=== PATIENT | male | born 1975 | race Hispanic/Latino ===

== ENCOUNTER 2019-10-24 09:56 | Inpatient (IN) | payer MEDICAID, OTHER, SELFPAY ==
[~2019-10-24] VITALS: Ht 177.8 cm; Wt 119.9 kg
[2019-10-24 10:30] LABS: BASOPHILS % (AUTO) 0.9 % (0.0-5.0); EOSINOPHILS % (AUTO) 0.9 % (0.0-8.0); LYMPHOCYTES % (AUTO) 7.5 % (21.0-51.0); MEAN CORPUSCULAR HEMOGLOBIN 30.7 pg (27.0-33.0); MEAN CORPUSCULAR HGB CONC 33.7 g/dL (32.0-36.0); MEAN CORPUSCULAR VOLUME 91.1 fL (79-99); MONOCYTES % (AUTO) 8.9 % (3.0-13.0); PLATELET COUNT (AUTO) 184 K/uL (130-400); RED BLOOD CELL COUNT(AUTO) 5.05 MIL/uL (4.50-6.20); RED CELL DISTRIBUTION WIDTH 12.5 % (11.0-15.5); WHITE BLOOD COUNT (AUTO) 5.3 K/uL (4.8-10.8)
[2019-10-24] MEDS ORDERED: ALBUTEROL INHALER 90MCG/INH IH ONE (10:31)
[2019-10-24 10:38] LABS: RAPID GROUP A STREP NEGATIVE (NEGATIVE)
[2019-10-24 10:48] LABS: INR 1.02 (0.85-1.15); PARTIAL THROMBOPLASTIN TIME 29.4 SEC (26.3-35.5)
[2019-10-24] MEDS ORDERED: ACETAMINOPHEN 325 MG TAB ONE (10:58)
[2019-10-24 11:03] LABS: ALBUMIN 3.8 g/dL (3.5-5.0); BILIRUBIN,TOTAL 0.8 mg/dL (0.2-1.0); CREATININE 1.1 mg/dL (0.5-1.5); POTASSIUM 3.8 mmol/L (3.5-5.1); TOTAL PROTEIN, SERUM 7.5 g/dL (6.0-8.3)
[2019-10-24 11:04] LABS: APPEARANCE,URINE Cloudy (CLEAR); BILIRUBIN,URINE Negative (NEGATIVE); COLOR,URINE Yellow (YELLOW); GLUCOSE, URINE (UA) Negative (NEGATIVE); KETONES,URINE Negative (NEGATIVE); LEUKOCYTE ESTERASE ,URINE Negative (NEGATIVE); NITRATE,URINE Negative (NEGATIVE); OCCULT BLOOD,URINE Negative (NEGATIVE); PH,URINE 5.5 (5.0-8.0); PROTEIN,URINE Trace mg/dL (NEGATIVE); UROBILINOGEN,URINE 0.2 mg/dL (0.2-1.0)
[2019-10-24 11:09] LABS: FERRITIN 271 ng/mL (30-400)
[2019-10-24 11:32] LABS: BACTERIA,URINE Moderate /HPF (None Seen); RBC,URINE 0-1 /HPF (0-1)
[2019-10-24 11:33] LABS: SQUAMOUS EPITHELIAL CELL,UR 0-2 /HPF (0-2); WBC,URINE 0-1 /HPF (0-1)
[2019-10-24] MEDS ORDERED: CEFTRIAXONE SODIUM 1 GM ONE (12:34)
[2019-10-24] MEDS ORDERED: AZITHROMYCIN 250 MG TABLET PO ONE (12:35)
[2019-10-24] MEDS ORDERED: ONDANSETRON HCL 4 MG/2 ML VIAL IV PRN (13:30)
[2019-10-24] MEDS: METOPROLOL TARTRATE 25 MG TAB PO SCH ×2 (13:30→21:00)
[2019-10-24] MEDS ORDERED: HYDRALAZINE HCL 20 MG/ML VIAL IV PRN (13:30)
[2019-10-24] MEDS ORDERED: ACETAMINOPHEN 325 MG TAB PO PRN (13:30)
[2019-10-24 14:18] LABS: HEMOGLOBIN A1C 7.6 % (4.0-6.0)
[2019-10-24 14:29] LABS: MAGNESIUM 1.8 mg/dL (1.80-2.40); PHOSPHORUS 2.9 mg/dL (2.5-4.9); THYROID STIMULATING HORMONE 1.51 uIU/mL (0.36-3.74)
[2019-10-24 16:00] VITALS: BP 150/91
[2019-10-24] MEDS: ACETAMINOPHEN 325 MG TAB PO PRN (20:10)
[2019-10-24] MEDS: CEFTRIAXONE SODIUM 1 GM IV SCH (20:11)
[2019-10-24 20:12] VITALS: BP 137/85
[2019-10-24] MEDS ORDERED: FUROSEMIDE 10 MG/ML 4ML VIAL IVP SCH (21:00)
[2019-10-24 23:59] VITALS: BP 130/85
[2019-10-25 04:17] VITALS: BP 151/81
[2019-10-25 08:13] VITALS: BP 144/91
[2019-10-25] MEDS ORDERED: ENOXAPARIN SODIUM 40 MG/0.4 ML SYRINGE SQ SCH (09:00)
[2019-10-25] MEDS: CEFTRIAXONE SODIUM 1 GM IV SCH (09:45)
[2019-10-25] MEDS: PANTOPRAZOLE SODIUM 40 MG TABLET.DR PO SCH (09:46)
[2019-10-25] MEDS: METOPROLOL TARTRATE 50 MG TAB PO SCH ×2 (09:46→20:08)
[2019-10-25] MEDS: ACETAMINOPHEN 325 MG TAB PO PRN ×2 (09:46→20:06)
[2019-10-25 11:37] VITALS: BP 158/92
[2019-10-25] MEDS ORDERED: GUAIFENESIN-CODEINE 5 ML SYRUP PO PRN (13:00)
[2019-10-25] MEDS: ENOXAPARIN SODIUM 40 MG/0.4 ML SYRINGE SQ SCH ×2 (14:30→20:07)
--- NOTE | 2019-10-25 15:47 | NUR ---
CM NOTE/IA PATIENT IN RESTRICTED PART OF HOSPITAL, , DWAIN, CALLED. PER , LIVES WITH SPOUSE AND 2 MINOR CHILDREN, IS INDEPENDENT WITH ADLS, NO HH OR PROVIDER, NO DME IN USE, AND FEELS SAFE FOR PATIENT TO RETURN HOME AFTER HOSPITAL DISCHARGE IF STABLE. CM PENDING TO GIVE PATIENT SELF PAY PACKETS AND GOOD RX COUPONS Addendum: 10/27/19 at 1550 by CHRISTOPHER ANDERSON RN CM Amended: Links added.
[2019-10-25 16:20] VITALS: BP 135/80
[2019-10-25] MEDS ORDERED: METFORMIN HCL 500 MG TAB.SR.24H PO SCH (17:00)
[2019-10-25] MEDS: METHYLPREDNISOLONE SOD SUCC 40MG/ML 1ML IVP SCH (20:07)
[2019-10-25] MEDS: METOPROLOL TARTRATE 25 MG TAB PO SCH (20:07)
[2019-10-25 20:16] VITALS: BP 146/100
[2019-10-25 23:59] VITALS: BP 145/86
[2019-10-26 04:00] VITALS: BP 123/75
[2019-10-26 06:20] LABS: BASOPHILS % (AUTO) 0.4 % (0.0-5.0); HEMATOCRIT 47.1 % (42-54); LYMPHOCYTES % (AUTO) 21.3 % (21.0-51.0); MEAN CORPUSCULAR HEMOGLOBIN 30.4 pg (27.0-33.0); MEAN CORPUSCULAR HGB CONC 33.1 g/dL (32.0-36.0); MEAN CORPUSCULAR VOLUME 91.8 fL (79-99); MONOCYTES % (AUTO) 5.3 % (3.0-13.0); NEUTROPHILS % (AUTO) 72.8 % (40.0-77.0); PLATELET COUNT (AUTO) 201 K/uL (130-400); RED BLOOD CELL COUNT(AUTO) 5.13 MIL/uL (4.50-6.20); RED CELL DISTRIBUTION WIDTH 12.4 % (11.0-15.5); WHITE BLOOD COUNT (AUTO) 5.1 K/uL (4.8-10.8)
[2019-10-26 06:34] LABS: CARBON DIOXIDE 27 mmol/L (21-32); CHLORIDE 100 mmol/L (101-111); CREATININE 1.1 mg/dL (0.5-1.5); GLOMERULAR FILTR. RATE CALC 78 mL/min (>60); GLUCOSE,RANDOM 177 mg/dL (70-105); PHOSPHORUS 3.5 mg/dL (2.5-4.9); POTASSIUM 3.9 mmol/L (3.5-5.1); SODIUM SERUM 135 mmol/L (136-145); UREA NITROGEN, BLOOD 13 mg/dL (7-18)
[2019-10-26] MEDS: PANTOPRAZOLE SODIUM 40 MG TABLET.DR PO SCH (08:33)
[2019-10-26] MEDS: METHYLPREDNISOLONE SOD SUCC 40MG/ML 1ML IVP SCH ×2 (08:33→20:40)
[2019-10-26] MEDS: METOPROLOL TARTRATE 50 MG TAB PO SCH ×2 (08:33→20:40)
[2019-10-26] MEDS: ENOXAPARIN SODIUM 40 MG/0.4 ML SYRINGE SQ SCH ×2 (08:34→20:41)
[2019-10-26 10:06] VITALS: BP 135/91
[2019-10-26] MEDS: INSULIN HUMULIN R 100 UNIT/ML 3ML SQ SCH ×3 (11:30→21:00)
[2019-10-26 13:34] VITALS: BP 133/96
[2019-10-26 18:50] VITALS: BP 132/86
[2019-10-26 19:30] VITALS: BP 134/74
--- NOTE | 2019-10-26 19:35 | NUR ---
PATIENT PLASMA CODE [id number]
[2019-10-27 00:19] VITALS: BP 125/82
[2019-10-27 04:00] VITALS: BP 141/89
[2019-10-27 05:12] LABS: CREATININE 0.9 mg/dL (0.5-1.5); CRP QUANTITATIVE 3.4 mg/L (0.00-9.0); MAGNESIUM 2.3 mg/dL (1.80-2.40); PHOSPHORUS 3.6 mg/dL (2.5-4.9); POTASSIUM 3.8 mmol/L (3.5-5.1)
[2019-10-27] MEDS: INSULIN HUMULIN R 100 UNIT/ML 3ML SQ SCH ×4 (06:55→21:46)
[2019-10-27 08:37] VITALS: BP 146/89
[2019-10-27] MEDS: METOPROLOL TARTRATE 50 MG TAB PO SCH ×2 (08:45→20:32)
[2019-10-27] MEDS: PANTOPRAZOLE SODIUM 40 MG TABLET.DR PO SCH (08:45)
[2019-10-27] MEDS: METHYLPREDNISOLONE SOD SUCC 40MG/ML 1ML IVP SCH ×2 (08:45→20:32)
[2019-10-27] MEDS: ENOXAPARIN SODIUM 40 MG/0.4 ML SYRINGE SQ SCH ×2 (08:47→20:33)
[2019-10-27 12:42] VITALS: BP 157/91
[2019-10-27 16:00] VITALS: BP 131/94
[2019-10-27 20:00] VITALS: BP 130/85
[2019-10-27] MEDS ORDERED: INSULIN GLARGINE 100 UNITS/ML 10 ML VIAL SQ SCH (21:00)
[2019-10-28] VITALS: BP 136/82
[2019-10-28 04:00] VITALS: BP 128/78
[2019-10-28] MEDS ORDERED: SODIUM CHLORIDE 0.9% 250 ML IV ONE (05:09)
[2019-10-28 05:35] LABS: LACTATE DEHYDROGENASE 157 U/L (81-234)
[2019-10-28 05:39] LABS: CRP QUANTITATIVE < 2.00 mg/L (0.00-9.0)
[2019-10-28] MEDS: INSULIN HUMULIN R 100 UNIT/ML 3ML SQ SCH ×2 (06:53→12:04)
[2019-10-28 08:00] VITALS: BP 132/91
[2019-10-28] MEDS: METOPROLOL TARTRATE 50 MG TAB PO SCH (08:27)
[2019-10-28] MEDS: METHYLPREDNISOLONE SOD SUCC 40MG/ML 1ML IVP SCH (08:27)
[2019-10-28] MEDS: PANTOPRAZOLE SODIUM 40 MG TABLET.DR PO SCH (08:27)
[2019-10-28] MEDS: ENOXAPARIN SODIUM 40 MG/0.4 ML SYRINGE SQ SCH (08:28)
[2019-10-28] MEDS ORDERED: CEFTRIAXONE SODIUM 1 GM IVP SCH ×2 (10:30→13:00)
[2019-10-28] MEDS ORDERED: AZITHROMYCIN 500MG+NS 250ML 250 ML IV SCH ×2 (10:30→14:00)
[2019-10-28 10:31] LABS: BASOPHILS % (AUTO) 0.4 % (0.0-5.0); EOSINOPHILS % (AUTO) 0.3 % (0.0-8.0); HEMATOCRIT 48.5 % (42-54); LYMPHOCYTES % (AUTO) 29.7 % (21.0-51.0); MEAN CORPUSCULAR HEMOGLOBIN 30.7 pg (27.0-33.0); MEAN CORPUSCULAR HGB CONC 32.6 g/dL (32.0-36.0); MEAN CORPUSCULAR VOLUME 94.2 fL (79-99); MONOCYTES % (AUTO) 5.6 % (3.0-13.0); NEUTROPHILS % (AUTO) 63.6 % (40.0-77.0); PLATELET COUNT (AUTO) 213 K/uL (130-400); RED BLOOD CELL COUNT(AUTO) 5.15 MIL/uL (4.50-6.20); RED CELL DISTRIBUTION WIDTH 12.8 % (11.0-15.5); WHITE BLOOD COUNT (AUTO) 12.6 K/uL (4.8-10.8)
[2019-10-28 10:42] LABS: ALBUMIN 3.4 g/dL (3.5-5.0); BILIRUBIN,TOTAL 0.5 mg/dL (0.2-1.0); POTASSIUM 3.7 mmol/L (3.5-5.1); TOTAL PROTEIN, SERUM 7.4 g/dL (6.0-8.3)
[2019-10-28 12:34] VITALS: BP 146/90
[2019-10-28 18:22] VITALS: BP 142/89
== END 2019-10-28 18:57 | disposition home or self-care (01) | DRG 177 ==
LOC: EDH 09:56 → EDHIP 09:57 → UNDOADMIN 13:20 → EDHIP 13:20 → 2DH 15:04
PROVIDERS: ADMIT Internal Medicine; ATTEND Internal Medicine
PROC: 30233K1 Transfusion of Nonautologous Frozen Plasma into Peripheral Vein, Percutaneous Approach (ICD-10-PCS; principal; 2019-10-24)
DX: U07.1 COVID-19 (principal); J96.01 Acute respiratory failure with hypoxia; J12.89 Other viral pneumonia; Z68.41 Body mass index [BMI] 40.0-44.9, adult; E87.1 Hypo-osmolality and hyponatremia; J98.11 Atelectasis; E66.01 Morbid (severe) obesity due to excess calories; E11.9 Type 2 diabetes mellitus without complications; F17.210 Nicotine dependence, cigarettes, uncomplicated; I10 Essential (primary) hypertension; D70.8 Other neutropenia; T38.0X5A Adverse effect of glucocorticoids and synthetic analogues, initial encounter; Y92.89 Other specified places as the place of occurrence of the external cause; Z83.3 Family history of diabetes mellitus
CPT/HCPCS: 36415; 71045; 80048; 80053; 81001; 82550; 82728; 82948; 83036; 83615; 83735; 83880; 84100; 84145; 84443; 84484; 85025; 85378; 85610; 85730; 86140; 86850; 86900; 86901; 86927; 87040; 87088; 87633; 87635; 87804; 87880; 93005; 94760; G0378; J0696; J1650; J1815; J1940; J2405; J2920; J7050; P9017; U0003

== ENCOUNTER 2019-10-29 22:51 | Inpatient (IN) | payer OTHER, SELFPAY ==
[~2019-10-29] VITALS: Ht 172.7 cm; Wt 118.0 kg
[2019-10-30 00:33] LABS: ABG BASE EXCESS 0.2 mmol/L (-2.0-3.0); ABG HCO3 21.6 mmol/L (21.0-28.0); ABG OXYGEN SATURATION 95.8 % (95.0-99.0); ABG PCO2 27 mmHg (35-48)
[2019-10-30] MEDS ORDERED: KETOROLAC TROMETHAMINE 30MG/ML ONE (00:49)
[2019-10-30] MEDS ORDERED: METOCLOPRAMIDE 10 MG/2 ML VIAL ONE (00:49)
[2019-10-30] MEDS ORDERED: ONDANSETRON HCL 4 MG/2 ML VIAL ONE (00:49)
[2019-10-30] MEDS ORDERED: IBUPROFEN 600 MG TABLET ONE (01:14)
[2019-10-30] MEDS ORDERED: ACETAMINOPHEN EXTRA STRENGTH 500 MG TABLET ONE (01:14)
[2019-10-30 01:24] LABS: BASOPHILS % (AUTO) 0.3 % (0.0-5.0); EOSINOPHILS % (AUTO) 0.2 % (0.0-8.0); HEMATOCRIT 47.7 % (42-54); LYMPHOCYTES % (AUTO) 13.6 % (21.0-51.0); MEAN CORPUSCULAR HEMOGLOBIN 30.7 pg (27.0-33.0); MEAN CORPUSCULAR HGB CONC 34.4 g/dL (32.0-36.0); MEAN CORPUSCULAR VOLUME 89.3 fL (79-99); MONOCYTES % (AUTO) 6.7 % (3.0-13.0); NEUTROPHILS % (AUTO) 78.7 % (40.0-77.0); PLATELET COUNT (AUTO) 142 K/uL (130-400); RED BLOOD CELL COUNT(AUTO) 5.34 MIL/uL (4.50-6.20); RED CELL DISTRIBUTION WIDTH 12.4 % (11.0-15.5); WHITE BLOOD COUNT (AUTO) 5.8 K/uL (4.8-10.8)
[2019-10-30 01:35] LABS: POTASSIUM 3.2 mmol/L (3.5-5.1)
[2019-10-30 01:41] LABS: APPEARANCE,URINE Clear (CLEAR); BILIRUBIN,URINE Negative (NEGATIVE); COLOR,URINE Yellow (YELLOW); GLUCOSE, URINE (UA) Negative (NEGATIVE); KETONES,URINE >=160 mg/dL (NEGATIVE); LEUKOCYTE ESTERASE ,URINE Negative (NEGATIVE); NITRATE,URINE Negative (NEGATIVE); OCCULT BLOOD,URINE Negative (NEGATIVE); PROTEIN,URINE Trace mg/dL (NEGATIVE)
[2019-10-30 01:43] LABS: INR 1.03 (0.85-1.15); PARTIAL THROMBOPLASTIN TIME 27.8 SEC (26.3-35.5); PROTHROMBIN TIME 11.1 SEC (9.6-11.6)
[2019-10-30 01:48] LABS: ALBUMIN 3.6 g/dL (3.5-5.0); BILIRUBIN,TOTAL 1.1 mg/dL (0.2-1.0); TOTAL PROTEIN, SERUM 7.7 g/dL (6.0-8.3)
[2019-10-30 01:54] LABS: BACTERIA,URINE Rare /HPF (None Seen); MUCUS,URINE Few LPF (None Seen); RBC,URINE 0-1 /HPF (0-1); WBC,URINE 0-1 /HPF (0-1)
[2019-10-30] MEDS ORDERED: POTASSIUM BICARB/CIT AC 25 MEQ TABLET.EFF ONE (02:19)
[2019-10-30 02:21] LABS: B-TYPE NATRIURETIC PEPTIDE < 5 pg/mL (0-100)
[2019-10-30 02:36] LABS: AMPHET/METH SCREEN,URINE NEGATIVE (NEGATIVE); BARBITURATE SCREEN, URINE NEGATIVE (NEGATIVE); BENZODIAZEPINES SCREEN,URINE NEGATIVE (NEGATIVE); CANNABINOID SCREEN,URINE NEGATIVE (NEGATIVE); COCAINE SCREEN,URINE NEGATIVE (NEGATIVE); OPIATE SCREEN,URINE NEGATIVE (NEGATIVE); PHENCYCLIDINE SCREEN,URINE NEGATIVE (NEGATIVE)
[2019-10-30] MEDS ORDERED: IOHEXOL-350 75 ML VIAL IV ONE (03:36)
[2019-10-30] MEDS ORDERED: CEFTRIAXONE SODIUM 1 GM ONE (08:05)
[2019-10-30] MEDS ORDERED: AZITHROMYCIN 500MG+NS 250ML 250 ML IV ONE (08:05)
[2019-10-30] MEDS ORDERED: SODIUM CHLORIDE 0.9% 1000ML 1,000 ML IV SCH (11:13)
[2019-10-30] MEDS: METOPROLOL TARTRATE 25 MG TAB PO SCH ×2 (11:15→21:00)
[2019-10-30] MEDS ORDERED: LACTULOSE 20 GM/30 ML UDCUP PO PRN (11:15)
[2019-10-30] MEDS ORDERED: POTASSIUM CHLORIDE 10MEQ/100ML 100 ML IV PRN (11:15)
[2019-10-30] MEDS ORDERED: ACETAMINOPHEN 325 MG TAB PO PRN (11:15)
[2019-10-30] MEDS ORDERED: NITROGLYCERIN 0.4 MG SL TAB SL PRN (11:15)
[2019-10-30] MEDS: CEFEPIME HCL 2 GM VIAL IVP SCH ×2 (11:15→19:15)
[2019-10-30] MEDS ORDERED: ONDANSETRON HCL 4 MG/2 ML VIAL IV PRN (11:15)
[2019-10-30] MEDS ORDERED: LIDOCAINE HCL-MPF 1% 2ML VIAL IV PRN (11:15)
[2019-10-30] MEDS ORDERED: HYDRALAZINE HCL 20 MG/ML VIAL IV PRN (11:15)
[2019-10-30] MEDS: METHYLPREDNISOLONE SOD SUCC 40MG/ML 1ML IVP SCH ×2 (11:15→19:15)
[2019-10-30] MEDS ORDERED: VANCOMYCIN PROTOCOL PER PHARMACY IV SCH (11:15)
[2019-10-30] MEDS: INSULIN HUMULIN R 100 UNIT/ML 3ML SQ SCH ×3 (11:30→21:00)
[2019-10-30] MEDS ORDERED: VANCOMYCIN 2.5 GM in SODIUM CHLORIDE 0.9% 500ML 500 ML IV ONE (13:15)
[2019-10-30] MEDS ORDERED: COMPOUND IV REFRIGERATED 1 EACH IVSOLN MISC PRN (13:15)
[2019-10-30] MEDS ORDERED: METHYLPREDNISOLONE SOD SUCC 40MG/ML 1ML ONE ×2 (14:51→23:48)
[2019-10-30] MEDS ORDERED: CEFEPIME HCL 1 GM VIAL ONE ×2 (14:51→23:20)
[2019-10-30] MEDS ORDERED: METOPROLOL TARTRATE 25 MG TAB ONE ×2 (14:52→23:20)
[2019-10-30] MEDS ORDERED: FAMOTIDINE 20MG TAB 20 MG TAB ONE (20:52)
[2019-10-30] MEDS ORDERED: SODIUM CHLORIDE 0.9% 1000ML 1,000 ML IV ONE (20:53)
[2019-10-30] MEDS: FAMOTIDINE 20MG TAB 20 MG TAB PO SCH (21:00)
[2019-10-30] MEDS ORDERED: INSULIN HUMULIN R 100 UNIT/ML 3ML ONE (23:21)
[2019-10-30] MEDS ORDERED: SODIUM CHLORIDE 0.9% 100 ML IV ONE (23:21)
[2019-10-31] MEDS: CEFEPIME HCL 2 GM VIAL IVP SCH ×3 (03:15→19:15)
[2019-10-31] MEDS: METHYLPREDNISOLONE SOD SUCC 40MG/ML 1ML IVP SCH ×3 (03:15→19:15)
[2019-10-31 05:30] LABS: BASOPHILS % (AUTO) 0.3 % (0.0-5.0); EOSINOPHILS % (AUTO) 0.5 % (0.0-8.0); HEMATOCRIT 44.9 % (42-54); LYMPHOCYTES % (AUTO) 29.7 % (21.0-51.0); MEAN CORPUSCULAR HEMOGLOBIN 30.8 pg (27.0-33.0); MEAN CORPUSCULAR HGB CONC 33.9 g/dL (32.0-36.0); MEAN CORPUSCULAR VOLUME 90.9 fL (79-99); MONOCYTES % (AUTO) 6.2 % (3.0-13.0); NEUTROPHILS % (AUTO) 62.8 % (40.0-77.0); PLATELET COUNT (AUTO) 146 K/uL (130-400); RED BLOOD CELL COUNT(AUTO) 4.94 MIL/uL (4.50-6.20); RED CELL DISTRIBUTION WIDTH 12.3 % (11.0-15.5); WHITE BLOOD COUNT (AUTO) 5.8 K/uL (4.8-10.8)
[2019-10-31 05:52] LABS: ALBUMIN 3.3 g/dL (3.5-5.0); BILIRUBIN,TOTAL 0.6 mg/dL (0.2-1.0); CREATININE 0.9 mg/dL (0.5-1.5); CRP QUANTITATIVE 41.4 mg/L (0.00-9.0); POTASSIUM 4.1 mmol/L (3.5-5.1)
[2019-10-31] MEDS: VANCOMYCIN 1.5 GM in SODIUM CHLORIDE 0.9% 250 ML IV SCH ×2 (06:00→18:00)
[2019-10-31] MEDS ORDERED: CEFEPIME HCL 1 GM VIAL ONE ×3 (06:45→23:27)
[2019-10-31] MEDS ORDERED: METHYLPREDNISOLONE SOD SUCC 40MG/ML 1ML ONE ×3 (06:45→23:46)
[2019-10-31] MEDS ORDERED: SODIUM CHLORIDE 0.9% 100 ML IV ONE (06:46)
[2019-10-31] MEDS: INSULIN HUMULIN R 100 UNIT/ML 3ML SQ SCH ×4 (07:30→21:00)
[2019-10-31] MEDS ORDERED: ENOXAPARIN SODIUM 30 MG/0.3 ML SQ ONE (07:50)
[2019-10-31] MEDS ORDERED: FAMOTIDINE 20MG TAB 20 MG TAB ONE (07:50)
[2019-10-31] MEDS: ENOXAPARIN SODIUM 30 MG/0.3 ML SQ SCH (09:00)
[2019-10-31] MEDS: FAMOTIDINE 20MG TAB 20 MG TAB PO SCH ×2 (09:00→21:00)
[2019-10-31] MEDS: METOPROLOL TARTRATE 25 MG TAB PO SCH ×3 (09:00→21:00)
--- NOTE | 2019-10-31 11:18 | NUR ---
DCP: HOME WITH FAMILY Sw unable to speak to pt who is ER covid unit. Per Michelle Rodríguez [phone], pt was discharged home from [facility] Thursday and reports that pt began feeling really bad again that night with fever. Pt returned to ER Sat when he felt worse and told he needed to come back. states she and children have also been tested and pending results, but everyone in home has had symptoms of covid, for the past week. Prior to admissions, pt was independent, working at [email or web address], no DME or in home care services. PCP is Dr Duggan, uses [facility] for rx. Plan is home at [place]. Addendum: 10/31/19 at 1127 by YULIYA KINGSLEY Amended: Links added.
[2019-10-31] MEDS ORDERED: METOPROLOL TARTRATE 25 MG TAB ONE ×2 (12:04→23:46)
[2019-10-31] MEDS ORDERED: INSULIN HUMULIN R 100 UNIT/ML 3ML ONE (13:04)
[2019-10-31] MEDS ORDERED: SODIUM CHLORIDE 0.9% 1000ML 1,000 ML IV ONE (19:59)
[2019-10-31 23:27] LABS: HEMATOCRIT 46.6 % (42-54); LYMPHOCYTES % (AUTO) 17.3 % (21.0-51.0); MEAN CORPUSCULAR HEMOGLOBIN 30.7 pg (27.0-33.0); MEAN CORPUSCULAR HGB CONC 34.3 g/dL (32.0-36.0); MEAN CORPUSCULAR VOLUME 89.3 fL (79-99); MONOCYTES % (AUTO) 3.8 % (3.0-13.0); NEUTROPHILS % (AUTO) 76.4 % (40.0-77.0); PLATELET COUNT (AUTO) 159 K/uL (130-400); RED BLOOD CELL COUNT(AUTO) 5.22 MIL/uL (4.50-6.20); RED CELL DISTRIBUTION WIDTH 12.2 % (11.0-15.5); WHITE BLOOD COUNT (AUTO) 6.4 K/uL (4.8-10.8)
[2019-10-31] MEDS ORDERED: FAMOTIDINE/PF 20 MG/2 ML VIAL IV ONE (23:46)
[2019-10-31 23:51] LABS: ALBUMIN 3.5 g/dL (3.5-5.0); BILIRUBIN,TOTAL 0.5 mg/dL (0.2-1.0); CREATININE 0.9 mg/dL (0.5-1.5); POTASSIUM 3.9 mmol/L (3.5-5.1); TOTAL PROTEIN, SERUM 7.6 g/dL (6.0-8.3)
[2019-11-01] MEDS: METHYLPREDNISOLONE SOD SUCC 40MG/ML 1ML IVP SCH (02:54)
[2019-11-01] MEDS: CEFEPIME HCL 2 GM VIAL IVP SCH ×2 (02:54→13:17)
--- NOTE | 2019-11-01 02:55 | NUR ---
got report from mahamed from er as per report patient did not received schedule vacomycin 1.5 mg q12 will adress it with pharmacy
[2019-11-01 04:45] VITALS: BP 146/73
[2019-11-01 06:02] LABS: BASOPHILS % (AUTO) 0.1 % (0.0-5.0); HEMATOCRIT 45.8 % (42-54); LYMPHOCYTES % (AUTO) 11.5 % (21.0-51.0); MEAN CORPUSCULAR HEMOGLOBIN 30.6 pg (27.0-33.0); MEAN CORPUSCULAR HGB CONC 34.1 g/dL (32.0-36.0); MEAN CORPUSCULAR VOLUME 89.8 fL (79-99); NEUTROPHILS % (AUTO) 84.8 % (40.0-77.0); PLATELET COUNT (AUTO) 169 K/uL (130-400); RED CELL DISTRIBUTION WIDTH 12.2 % (11.0-15.5); WHITE BLOOD COUNT (AUTO) 9.6 K/uL (4.8-10.8)
--- NOTE | 2019-11-01 06:16 | NUR ---
called pharmacy but pharmacist is running late, i wated to make him aware that this patient missed a whole day of vancomycin, and need to know if as per pharmacist dosage might have to get adjusted pending response from pharmacist
[2019-11-01 06:26] LABS: ALBUMIN 3.4 g/dL (3.5-5.0); BILIRUBIN,TOTAL 0.7 mg/dL (0.2-1.0); CREATININE 0.8 mg/dL (0.5-1.5); POTASSIUM 3.9 mmol/L (3.5-5.1); TOTAL PROTEIN, SERUM 7.2 g/dL (6.0-8.3)
[2019-11-01 07:30] VITALS: BP 140/83
[2019-11-01] MEDS: INSULIN HUMULIN R 100 UNIT/ML 3ML SQ SCH ×2 (07:30→13:19)
[2019-11-01] MEDS ORDERED: VANCOMYCIN 1.5 GM in SODIUM CHLORIDE 0.9% 250 ML IV SCH (09:25)
[2019-11-01 09:36] LABS: CRP QUANTITATIVE 22.8 mg/L (0.00-9.0)
[2019-11-01] MEDS: METOPROLOL TARTRATE 25 MG TAB PO SCH ×2 (10:00→11:15)
[2019-11-01] MEDS: FAMOTIDINE 20MG TAB 20 MG TAB PO SCH (10:00)
[2019-11-01] MEDS: ENOXAPARIN SODIUM 30 MG/0.3 ML SQ SCH (10:00)
--- NOTE | 2019-11-01 10:57 | NUR ---
DR. FLORES MADE AWARE PATIENT RECEIVED PLASMA LAST THURSDAY, AND HAS PENDING ORDER TO TRANSFUSE 2 UNITS OF CONVALESCENT PLASMA. PER DR. FLORES D/C PLASMA ORDER
[2019-11-01] MEDS ORDERED: METO25 PO (11:30)
[2019-11-01] MEDS ORDERED: METH2TAB PO (11:40)
[2019-11-01 12:00] VITALS: BP 123/78
--- NOTE | 2019-11-01 14:25 | NUR ---
DISCHARGE INSTRUCTIONS GIVEN TO PATIENT, MADE AWARE OF NEW RX FOR MEDROL, AND METOPROLOL. MADE AWARE OF NEED TO FOLLOW UP WITH PCP DR. FLOYD IN [place] IN 2-3 DAYS. PATIENT AT THIS TIME IS AMBULATING IN ROOM, DENIES ANY SHORTNESS OF BREATH OR CHEST PAIN, PATIENT HAS BEEN AFEBRILE. IV AND TELE REMOVED. PATIENT WILL BE TAKEN HOME BY HIS
[2019-11-01] MEDS ORDERED: VANCOMYCIN 1.25 GM in SODIUM CHLORIDE 0.9% 250 ML IV SCH (22:00)
[2019-11-02] MEDS ORDERED: DEXAMETHASONE 4 MG TAB PO SCH (09:00)
== END 2019-11-01 14:35 | disposition home or self-care (01) | DRG 177 ==
LOC: EDH 22:51 → EDHIP 22:52 → 2DH 11-01 04:37
PROVIDERS: ADMIT Hospitalist; ATTEND Hospitalist
DX: U07.1 COVID-19 (principal); J12.89 Other viral pneumonia; J96.90 Respiratory failure, unspecified, unspecified whether with hypoxia or hypercapnia; I11.9 Hypertensive heart disease without heart failure; F17.210 Nicotine dependence, cigarettes, uncomplicated; E11.9 Type 2 diabetes mellitus without complications; E66.9 Obesity, unspecified; M47.815 Spondylosis without myelopathy or radiculopathy, thoracolumbar region; Z68.39 Body mass index [BMI] 39.0-39.9, adult; Z83.3 Family history of diabetes mellitus; Z82.49 Family history of ischemic heart disease and other diseases of the circulatory system
CPT/HCPCS: 36415; 71045; 71275; 80053; 80202; 80305; 81001; 82550; 82728; 82803; 82948; 83605; 83615; 83880; 84145; 84484; 85025; 85378; 85610; 85730; 86140; 86850; 86900; 86901; 87040; 93005; G0378; J0456; J0692; J0696; J1650; J1815; J1885; J2405; J2765; J2920; J3370; J3490; J7030; J7040; J7050; Q9967

== ENCOUNTER 2024-10-11 17:29 | Emergency (ER) | payer OTHER ==
[~2024-10-11] VITALS: Ht 172.7 cm; Wt 119.3 kg
[~2024-10-11 17:29] MED LIST: METH2TAB PO; METO25 PO
[2024-10-11 18:04] LABS: BASOPHILS # (AUTO) 0.09 K/uL (0.00-0.20); BASOPHILS % (AUTO) 1.2 % (0.0-5.0); EOSINOPHILS # (AUTO) 0.19 K/uL (0.00-0.70); EOSINOPHILS % (AUTO) 2.4 % (0.0-8.0); HEMATOCRIT 46.9 % (42-54); IMMATURE GRANULOCYTE ABSOLUTE 0.04 K/uL (0-1); LYMPHOCYTES # (AUTO) 2.4 K/uL (1.0-4.8); LYMPHOCYTES % (AUTO) 30.9 % (21.0-51.0); MEAN CORPUSCULAR HEMOGLOBIN 31.3 pg (27.0-33.0); MEAN CORPUSCULAR HGB CONC 34.1 g/dL (32.0-36.0); MEAN CORPUSCULAR VOLUME 91.6 fL (79-99); MONOCYTES # (AUTO) 0.5 K/uL (0.1-1.0); MONOCYTES % (AUTO) 6.4 % (3.0-13.0); NEUTROPHILS # (AUTO) 4.6 K/uL (1.8-7.7); NEUTROPHILS % (AUTO) 58.6 % (40.0-77.0); PLATELET COUNT (AUTO) 235 K/uL (130-400); RED BLOOD CELL COUNT(AUTO) 5.12 MIL/uL (4.50-6.20); RED CELL DISTRIBUTION WIDTH 11.9 % (11.0-15.5); WHITE BLOOD COUNT (AUTO) 7.8 K/uL (4.8-10.8)
[2024-10-11 18:05] VITALS: BP 142/92; PULSE 80; RESP 18; TEMP 98.7; O2SAT 96
[2024-10-11 18:14] LABS: APPEARANCE,URINE CLEAR (CLEAR); BILIRUBIN,URINE NEGATIVE (NEGATIVE); COLOR,URINE YELLOW (YELLOW); GLUCOSE, URINE (UA) NEGATIVE (NEGATIVE); KETONES,URINE NEGATIVE (NEGATIVE); LEUKOCYTE ESTERASE ,URINE NEGATIVE Leu/uL (NEGATIVE); NITRATE,URINE NEGATIVE (NEGATIVE); OCCULT BLOOD,URINE NEGATIVE (NEGATIVE); PH,URINE 5.5 (5.0-8.0); PROTEIN,URINE NEGATIVE (NEGATIVE); UROBILINOGEN,URINE 0.2 mg/dL (0.2-1.0)
[2024-10-11] MEDS: LACTATED RINGERS 1000ML 1,000 ML IV ONE (18:14)
[2024-10-11 18:15] LABS: POTASSIUM 4.1 mmol/L (3.5-5.1)
[2024-10-11 18:17] LABS: BACTERIA,URINE RARE /HPF (None Seen); MUCUS,URINE RARE LPF (None Seen); RBC,URINE 0-1 /HPF (0-1); SQUAMOUS EPITHELIAL CELL,UR RARE /HPF (0-2)
--- NOTE | 2024-10-11 18:19 | HMCIMG ---
CHEST 1VW REASON: weakness COMPARISON: None. FINDINGS: Single view of the chest was obtained. Lungs are clear. Heart size is normal. There is no pulmonary vascular congestion. Mediastinum and bony thorax appear unremarkable. IMPRESSION: 1. Normal single view chest x-ray.
[2024-10-11 18:24] LABS: ALBUMIN 3.9 g/dL (3.5-5.0); BILIRUBIN,TOTAL 1.1 mg/dL (0.2-1.0); TOTAL PROTEIN, SERUM 7.9 g/dL (6.0-8.3)
[2024-10-11] MEDS ORDERED: METF-1151 PO (18:43)
[2024-10-11] MEDS ORDERED: LOSA50TA64 PO (18:43)
--- NOTE | 2024-10-11 18:43 | ERN ---
General Chief Complaint: Dizzy/Light Headed Stated Complaint: DIZZINESS, FEVER, WEAKNESS Time Seen by MD: 17:34 Source: patient History of Present Illness Initial Comments 48-year-old male coming in with multiple complaints. Patient states that he has not taken his blood pressure medication or his antidiabetic medication for a year. He states that he has not followed up with his PCP is told before. He has been feeling weakness and he believes his blood pressure has been really elevated. Checked his blood pressure at the local grocery store and states that it was in the 160s. Allergies: Coded Allergies: No Known Allergies (Verified Allergy, Unknown, 10/30/19) Home Meds Active Scripts Methylprednisolone (Medrol) 2 Mg Tablet, 2 MG PO DAILY for 7 Days, #21 TAB Prov:[facility] GOSS [facility] 11/01/19 Metoprolol Tartrate (Lopressor) 25 Mg Tab, 25 MG PO BID for 10 Days, #20 TAB Prov:[facility]OO GOSS I [facility] 11/01/19 Past Medical History Past Medical History: Diabetes-Type II, Hypertension Past Surgical History: Unknown ROS Dictation CONSTITUTIONAL: No chills, no fever, weakness, no diaphoresis, no malaise. HEAD/FACE: No signs of trauma. EENT: No eye pain, no blurred vision, no tearing, no double vision, no ear pain, no ear discharge, no nose pain, no nasal congestion, no throat pain, no throat swelling, no mouth pain. RESPIRATORY: No cough, no orthopnea, no SOB, no stridor, no wheezing. CARDIOVASCULAR: No chest pain, no edema, no palpitations, no syncope. GASTROINTESTINAL/ABDOMINAL: No abdominal pain, no constipation, no diarrhea, no nausea, no vomiting. GENITOURINARY: No abnormal discharge, no dysuria, no frequent urination, no hematuria. No complaints of pain in the genitals. MUSCULOSKELETAL: No back pain, no gout, no joint pain, no joint swelling, no muscle pain, no muscle stiffness, no neck pain. INTEGUMENTARY: No change in color, no change in hair/nails, no dryness, no lesion, no lumps, no rash. NEUROLOGICAL/PSYCH: No anxiety, not depressed, no emotional problem, no headache, no numbness, no pre-existing deficit, no history of seizures, no tremors, no weakness. HEMATOLOGIC/LYMPHATIC: Not anemic, no history of blood clots, no apparent bleeding, no bruising, glands not swollen. All Systems Negative, Except as Noted. Physical Exam Physical Exam Dictation VITAL SIGNS: Reviewed. GENERAL APPEARANCE: Alert, oriented x3, no acute distress, obese. HEAD AND FACE: Non-traumatic. EYES: PERRL, pink conjunctivas, eyelid no trauma, anterior chamber clear. EARS: Pinnas intact and no signs of trauma or erythema. Ear canals clear and no discharge. TMs no erythema. NOSE: No discharge, no bleeding. OROPHARYNX: Mouth normal, teeth no caries, tongue pink. Pharynx clear, no erythema. Tonsils no exudates, no abscesses noted. Mucous membrane moist. NECK: Supple, non-tender, no thyromegaly, no masses, no JVD, no bruits. BREAST: Deferred. CHEST: No tenderness, no crepitus, no paradoxical movement, no retractions. LUNGS: Clear, well-ventilated, symmetric, no rales, no wheezing, no rhonchi, no stridor, good breath sounds bilaterally. HEART: Regular rate, regular rhythm, no murmur, no gallops. VASCULAR: No peripheral edema. ABDOMEN: Soft, positive bowel sounds, nondistended, no guarding, nontender, no rebound, no masses no hepatomegaly, no splenomegaly, no García's sign, no hernias. RECTAL: Deferred. GENITAL: Deferred. NEUROLOGICAL: Normal speech, gross motor function intact, gross sensory function intact. MUSCULOSKELETAL: Neck nontender, full range of motion, back nontender, full range of motion. EXTREMITIES: Nontender, full range of motion. SKIN: Color pink, dry, no turgor, no rash, no lacerations, no abrasions, no contusions. LYMPHATICS: Deferred. Results Laboratory and Microbiology Lab and Micro Result Laboratory Tests Test 10/11/24 17:58 10/11/24 18:00 White Blood Count 7.8 K/uL (4.8-10.8) Red Blood Count 5.12 MIL/uL (4.50-6.20) Hemoglobin 16.0 g/dL (14.0-18.0) Hematocrit 46.9 % (42-54) Mean Corpuscular Volume 91.6 fL (79-99) Mean Corpuscular Hemoglobin 31.3 pg (27.0-33.0) Mean Corpuscular Hemoglobin Concent 34.1 g/dL (32.0-36.0) Red Cell Distribution Width 11.9 % (11.0-15.5) Platelet Count 235 K/uL (130-400) Mean Platelet Volume 9.9 fL (7.5-10.5) Immature Granulocyte % (Auto) 0.5 % (0-1) Neutrophils (%) (Auto) 58.6 % (40.0-77.0) Lymphocytes (%) (Auto) 30.9 % (21.0-51.0) Monocytes (%) (Auto) 6.4 % (3.0-13.0) Eosinophils (%) (Auto) 2.4 % (0.0-8.0) Basophils (%) (Auto) 1.2 % (0.0-5.0) Neutrophils # (Auto) 4.6 K/uL (1.8-7.7) Lymphocytes # (Auto) 2.4 K/uL (1.0-4.8) Monocytes # (Auto) 0.5 K/uL (0.1-1.0) Eosinophils # (Auto) 0.19 K/uL (0.00-0.70) Basophils # (Auto) 0.09 K/uL (0.00-0.20) Absolute Immature Granulocyte (auto 0.04 K/uL (0-1) Nucleated Red Blood Cells 0.0 % (0.0-0.19) Sodium Level 137 mmol/L (136-145) Potassium Level 4.1 mmol/L (3.5-5.1) Chloride Level 102 mmol/L (101-111) Carbon Dioxide Level 30 mmol/L (21-32) Blood Urea Nitrogen 15 mg/dL (7-18) Creatinine 1.0 mg/dL (0.5-1.3) Glomerular Filtration Rate Calc 93 mL/min (>90) Random Glucose 212 mg/dL (70-105) H Total Calcium 8.8 mg/dL (8.5-10.1) Total Bilirubin 1.1 mg/dL (0.2-1.0) H Aspartate Amino Transf (AST/SGOT) 39 U/L (10-37) H Alanine Aminotransferase (ALT/SGPT) 72 U/L (12-78) Alkaline Phosphatase 102 U/L (50-136) Total Creatine Kinase 221 U/L (21-232) # Troponin I High Sensitivity 5 ng/L (4-75) Total Protein 7.9 g/dL (6.0-8.3) Albumin 3.9 g/dL (3.5-5.0) Urine Color YELLOW (YELLOW) Urine Appearance CLEAR (CLEAR) Urine pH 5.5 (5.0-8.0) Urine Specific [place] 1.028 (1.001-1.031) Urine Protein NEGATIVE mg/dL (NEGATIVE) Urine Glucose (UA) NEGATIVE mg/dL (NEGATIVE) Urine Ketones NEGATIVE mg/dL (NEGATIVE) Urine Occult Blood NEGATIVE (NEGATIVE) Urine Nitrate NEGATIVE (NEGATIVE) Urine Bilirubin NEGATIVE mg/dL (NEGATIVE) Urine Urobilinogen 0.2 mg/dL (0.2-1.0) Urine Leukocyte Esterase NEGATIVE Major/uL Urine RBC 0-1 /HPF (0-1) Urine WBC 2-5 /HPF (0-1) H Urine Squamous Epithelial Cells RARE /HPF (0-2) Urine Bacteria RARE /HPF (None Seen) Labs Reviewed?: Yes MDM MDM: Differential diagnosis: Hypertension, diabetes mellitus, noncompliance, Rationale: Tests considered and ordered secondary to shared decision making include: Previous outside records reviewed: Old ER visits. Risk of complication and/or morbidity or mortality of patient management: None Patient is a 48-year-old male coming in complaining of generalized body weakness. Patient states that he has not taken his medications prescribed by his PCP. He has been noncompliant for about a year. He was diagnosed with hypertension and diabetes. He has not refilled his scripts I did advise him that we will be refilling his scripts and I also advised him appropriate follow up with his primary care physician. After hydration with IV fluids patient states he feels better and will be discharged in stable condition she was educated on the appropriate follow up and we will be doing so accordingly. ED Course Orders Procedure Category Date Status Time Cbc With Differential LAB 10/11/24 Complete 17:42 Chest 1vw RAD 10/11/24 Resulted 17:42 12 Lead Ekg Tracing- EKG 10/11/24 Logged Technical 17:42 Lactated Ringers PHA 10/11/24 Complete 1000ml (Lactated 18:00 Creatine Kinase, Total LAB 10/11/24 Complete 17:42 Troponin I High LAB 10/11/24 Complete Sensitivity 17:42 Comprehensive LAB 10/11/24 Complete Metabolic Panel 17:42 Urinalysis LAB 10/11/24 Complete W/Microscopic 17:42 Current Medications Medications (Trade) Dose Ordered Sig/Juaquin Route PRN Reason Start Time Stop Time Status Last Admin Dose Admin Lactated Ringer's 1,000 ml @ 0 mls/hr ONCE ONCE IV 10/11/24 18:00 10/11/24 18:01 DC 10/11/24 18:14 Vital Signs Date Time Temp Pulse Resp B/P (MAP) Pulse Ox O2 Delivery O2 Flow Rate FiO2 10/11/24 18:05 98.8 80 18 142/92 96 Room Air* 0 21 10/11/24 17:32 97.5 89 18 137/98 96 Room Air 0 DX & DISP Disposition: Discharge Departure Impression: Primary Impression: Noncompliance Additional Impressions: Hypertension, Diabetes mellitus, Dehydration Condition: Stable Scripts Metformin HCl (Metformin HCl ER) 1,000 Mg [id number] 1 TAB PO BID for diabetes for 30 Days, #60 TAB 0 Refills Prov: RAFAEL KRUEGER MD 10/11/24 Losartan Potassium (Losartan Potassium) 50 Mg Tablet 1 TAB PO DAILY for 30 Days, #30 TAB 0 Refills Prov: RAFAEL KRUEGER MD 10/11/24 Additional Instructions: FOLLOW-UP WITH PRIMARY CARE PROVIDER IN 1 TO 2 DAYS. TAKE MEDICATIONS DIRECTED HERE IN THE EMERGENCY ROOM. OKAY TO CONTINUE HOME MEDICATIONS UNLESS OTHERWISE DISCUSSED DURING YOUR VISIT IN THE EMERGENCY ROOM TODAY. RETURN TO YOUR NEAREST EMERGENCY ROOM IF SYMPTOMS WORSEN OR IF THERE IS NO IMPROVEMENT. CALL 911 IF YOU NEED IMMEDIATE ASSISTANCE. TAKE TYLENOL [id number] NEEDED AND IF NO CONTRAINDICATIONS ARE PRESENT. INCREASE ORAL HYDRATION. A WOUND CULTURE OR URINE CULTURE WAS ORDERED HERE IN THE EMERGENCY ROOM DEPARTMENT PLEASE FOLLOW-UP WITH PRIMARY CARE PROVIDER AND ADVISE THEM TO GET REPORTS FROM OUR FACILITY. IF YOU HAD ANY PÉREZ WRAP/SPLINTS THAT WERE APPLIED HERE, PLEASE DO NOT REMOVE THEM UNTIL YOU SEE YOUR PRIMARY CARE OR SPECIALTY. Referrals: Referrals: ZEHRA SORENSON MD (PCP) Time of Disposition: 18:42 RAFAEL KRUEGER MD Oct 11, 2024 18:43
--- NOTE | 2024-10-12 06:12 | EKG ---
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
== END 2024-10-11 18:48 | disposition home or self-care (01) ==
LOC: EDH 17:29
DX: I10 Essential (primary) hypertension (principal); E11.9 Type 2 diabetes mellitus without complications; E86.0 Dehydration; Z79.52 Long term (current) use of systemic steroids; Z79.899 Other long term (current) drug therapy; Z91.199 Patient's noncompliance with other medical treatment and regimen due to unspecified reason
CPT/HCPCS: 36415; 71045; 80053; 81001; 82550; 84484; 85025; 93005; 99285